=== PATIENT | male | born 1975 | race Caucasian/White ===

== ENCOUNTER 2019-08-09 10:21 | Emergency (ER) | payer BC ==
[~2019-08-09] VITALS: Ht 182.9 cm; Wt 102.1 kg
[2019-08-09 10:21] VITALS: BP_SYST 143
--- NOTE | 2019-08-09 10:21 | NUR ---
BROUGHT BACK TO BED #6 AND TRIAGED. REPORT GIVEN TO SERINA
--- NOTE | 2019-08-09 10:24 | NUR ---
Pt c/o R hand lac s/p cutting w/glass.
--- NOTE | 2019-08-09 10:25 | NUR ---
ER Shikha Aviles at bedside examining patient.
--- NOTE | 2019-08-09 10:40 | NUR ---
Pt tolerating wound repair.
[2019-08-09] MEDS ORDERED: LIDOCAINE 1% 10 MG/ML, 20 ML MDV INJ ONE (10:45)
[2019-08-09] MEDS ORDERED: DIPH-TET-PERTUS Vaccine 0.5 ML VIAL (ADACEL) IM ONE (10:45)
[2019-08-09] MEDS ORDERED: BACITRACIN 1 GM OINT TP ONE (10:45)
--- NOTE | 2019-08-09 10:55 | NUR ---
Pt's wound care done
[2019-08-09 11:00] VITALS: BP_SYST 148
--- NOTE | 2019-08-09 11:00 | NUR ---
Patient given written and verbal discharge instructions and verbalizes understanding. ER MD discussed with patient the results and treatment provided. Patient in stable condition. ID arm band removed. NO Rx given. Patient educated on pain management and to follow up with PMD. Pain Scale 0. Opportunity for questions provided and answered. Medication side effect fact sheet provided.
== END 2019-08-09 11:00 | disposition home or self-care (01) ==
LOC: SED 10:21
DX: S61.411A Laceration without foreign body of right hand, initial encounter (principal); Z88.0 Allergy status to penicillin; W25.XXXA Contact with sharp glass, initial encounter; Y93.89 Activity, other specified; Y92.89 Other specified places as the place of occurrence of the external cause; Y99.8 Other external cause status
CPT/HCPCS: 12002; 90471; 90715; 99283; J2001

== ENCOUNTER 2021-08-14 13:44 | Emergency (ER) | payer OTHER, SELFPAY ==
[~2021-08-14] VITALS: Ht 182.9 cm; Wt 102.1 kg
[2021-08-14 13:55] VITALS: BP_SYST 130
[2021-08-14] MEDS ORDERED: ALBU8.5H8 INH (16:17)
[2021-08-14] MEDS ORDERED: PRED20TA PO (16:17)
[2021-08-14 16:21] VITALS: BP_SYST 130
== END 2021-08-14 16:20 | disposition home or self-care (01) ==
LOC: SED 13:44
DX: J40 Bronchitis, not specified as acute or chronic (principal); Z20.822 Contact with and (suspected) exposure to COVID-19; Z88.0 Allergy status to penicillin; Z79.899 Other long term (current) drug therapy
CPT/HCPCS: 36415; 71045; 99284